=== PATIENT | male | born 1975 | race Caucasian/White ===

== ENCOUNTER 2018-06-09 08:24 | Outpatient (CLI) ==
[2013-08-27 14:47] VITALS: BMI 30.8
== END 2018-06-09 08:25 | disposition home or self-care (01) ==
LOC: LAB 08:24
PROVIDERS: ATTEND Internal Medicine
DX: E78.49 Other hyperlipidemia (principal)
CPT/HCPCS: 36415; 80053

== ENCOUNTER 2018-08-11 08:30 | Outpatient (CLI) ==
[2013-08-27 14:47] VITALS: BMI 30.8
== END 2018-08-11 08:31 | disposition home or self-care (01) ==
LOC: LAB 08:30
PROVIDERS: ATTEND Physician Assistant
DX: E78.49 Other hyperlipidemia (principal)
CPT/HCPCS: 36415; 80053; 80061; 83735; 84100; 84550